=== PATIENT | male | born 1960 | race Caucasian/White ===

== ENCOUNTER 2020-03-26 21:21 | Emergency (ER) | payer OTHER ==
--- NOTE | 2020-03-26 22:02 | EDM.PDOC ---
ED HPI GENERAL MEDICAL PROBLEM - General Chief Complaint: Upper Extremity Injury/Pain Stated Complaint: SWOLLEN FINGER Time Seen by Provider: 03/26/20 21:29 Source of Information: Reports: Patient History Limitations: Reports: No Limitations Left Middle Finger-Middle Pain Score (Numeric/FACES): 1 - Related Data Allergies Allergy/AdvReac Type Severity Reaction Status Date / Time No Known Allergies Allergy Verified 01/23/18 14:20 Home Meds: Home Meds FLUoxetine [PROzac] 1 tab PO DAILY 03/26/20 [History] Levothyroxine [Synthroid] 1 tab PO DAILY 03/26/20 [History] Past Medical History Psychiatric History: Reports: Depression Endocrine/Metabolic History: Reports: Hypothyroidism - Infectious Disease History Infectious Disease History: Reports: Measles Social & Family History - Family History Family Medical History: No Pertinent Family History - Tobacco Use Tobacco Use Status *Q: Current Every Day Tobacco User Years of Tobacco use: 45 Packs/Tins Daily: 1.5 - Caffeine Use Caffeine Use: Reports: Coffee, Energy Drinks - Recreational Drug Use Recreational Drug Use: Yes Drug Use in Last 12 Months: No Review of Systems - Review of Systems Review Of Systems: Comprehensive ROS is negative, except as noted in HPI. ED EXAM, GENERAL - Physical Exam Exam: See Below Exam Limited By: No Limitations General Appearance: Alert, WD/WN, No Apparent Distress Ears: Hearing Grossly Normal Nose: Normal Inspection Throat/Mouth: Normal Voice, No Airway Compromise Head: Atraumatic, Normocephalic Neck: Normal Inspection, Supple, Non-Tender, Full Range of Motion Respiratory/Chest: No Respiratory Distress Cardiovascular: Normal Peripheral Pulses Peripheral Pulses: 2+: Radial (L), Radial (R) Extremities: Other (Skin is blanched to tip of the left second digit; patient states it feels like [id number]. Patient has pain and warmth noted to the remainder of the fingertip.) Neurological: Alert, Oriented, Normal Cognition Psychiatric: Normal Affect, Normal Mood Skin Exam: Other (Skin is blanched to tip of the left second digit; pea-sized; patient states it feels like [id number]. Patient has pain and warmth noted to the remainder of the fingertip.) Lymphatic: No Adenopathy Course - Vital Signs Text/Narrative:: 59-year-old male presents the emergency department with pain noted to the tip of his second digit on his left hand. Pea-sized area of fingertip is blanched. He states it is painful and feels like [id number]. 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 States he was wearing gloves and using hand warmers however still developed frostbite to his fingertip. At this point he does have sensation however it is painful. Will be discharged to home with recommendations he take Tylenol for pain control; expect to develop a blister; and watch for signs and symptoms of infection. Last Recorded V/S: Last Vital Signs Temp 98 F 03/26/20 21:30 Pulse 86 03/26/20 21:30 Resp 20 03/26/20 21:30 BP 129/71 03/26/20 21:30 Pulse Ox 98 03/26/20 21:30 Departure - Departure Time of Disposition: 21:58 Disposition: Home, Self-Care 01 Condition: Good Clinical Impression: Frostbite of finger of left hand - Discharge Information Instructions: Frostbite, [id number] Referrals: Joie Dahl PA-C [Primary Care Provider] - Forms: ED Department Discharge Additional Instructions: You were seen in the emergency department today with complaints of numbness to left middle fingertip due to cold exposure. It appears you do have frostbite, however you do have numbness and tingling which is a good sign. You will likely develop a blister over this area. Watch for signs or symptoms of infection. Such as redness, warmth or swelling. Keep the fingertip warm not hot. Obtain a pair of wool gloves to wear under your work gloves. Take Tylenol 650 mg every 4 hours as needed for discomfort. Follow-up with your primary care physician, Joie Dahl, early next week if you note signs or symptoms of infection. Sepsis Event Note (ED) - Evaluation Sepsis Screening Result: No Definite Risk - Focused Exam Vital Signs: Vital Signs Temp Pulse Resp BP Pulse Ox 03/26/20 21:30 98 F 86 20 129/71 98
== END 2020-03-26 22:08 | disposition home or self-care (01) ==
LOC: JD.ED 21:21
DX: T33.532A Superficial frostbite of left finger(s), initial encounter (principal); E03.9 Hypothyroidism, unspecified; Z72.0 Tobacco use; Z79.899 Other long term (current) drug therapy; X31.XXXA Exposure to excessive natural cold, initial encounter
CPT/HCPCS: 99282; 99283